=== PATIENT | male | born 1965 | race Caucasian/White ===

== ENCOUNTER → 2017-01-23 | Outpatient (CLI) | payer MEDICARE ==
[2017-01-23 09:38] LABS: HEMATOCRIT 43.8 % (37.9-51.0); HGB HCT DIFFERENCE 1.2; MEAN CORPUSCULAR HEMOGLOBIN 31.7 pg (27.0-33.4); MEAN CORPUSCULAR HGB CONC 34.3 g/dL (32.0-36.0); MEAN CORPUSCULAR VOLUME 92 fl (80-97); RED BLOOD COUNT 4.74 10^6/uL (4.35-5.55); RED CELL DISTRIBUTION WIDTH 14.5 % (11.5-14.0); WHITE BLOOD COUNT 8.4 10^3/uL (4.0-10.5)
[2017-01-23 09:59] LABS: ALANINE AMINOTRANSFERASE 35 U/L (21-72); ALBUMIN 4.1 g/dL (3.5-5.0); ALKALINE PHOSPHATASE 82 U/L (38-126); ANION GAP 14 (5-19); ASPARTATE AMINO TRANSFERASE 19 U/L (17-59); BILIRUBIN,DIRECT 0.3 mg/dL (0.0-0.4); BILIRUBIN,TOTAL 0.7 mg/dL (0.2-1.3); BLOOD UREA NITROGEN 15 mg/dL (7-20); CARBON DIOXIDE 24 mmol/L (22-30); CHLORIDE 105 mmol/L (98-107); CHOLESTEROL 174.51 mg/dL (0-200); Direct HDL 36 mg/dL (>40); GLUCOSE 97 mg/dL (75-110); POTASSIUM 4.6 mmol/L (3.6-5.0); TOTAL PROTEIN 6.8 g/dL (6.3-8.2); TRIGLYCERIDES 164 mg/dL (<150)
[2017-01-23 10:10] LABS: DIRECT LDL 81 mg/dL (<100)
[2017-01-23 11:07] LABS: VLDL CHOLESTEROL 32.8 mg/dL (10-31)
== END ==
LOC: LAB 09:18
DX: F25.0 Schizoaffective disorder, bipolar type (principal); Z79.899 Other long term (current) drug therapy
CPT/HCPCS: 36415; 80048; 80061; 80076; 82607; 82746; 83036; 85027

== ENCOUNTER 2017-04-03 15:26 | Emergency (ER) | payer MEDICARE ==
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
[2017-04-03 16:49] VITALS: BP 128/72
== END 2017-04-03 16:37 | disposition home or self-care (01) ==
LOC: ER 15:26
DX: J06.9 Acute upper respiratory infection, unspecified (principal); R06.02 Shortness of breath; F17.210 Nicotine dependence, cigarettes, uncomplicated
CPT/HCPCS: 99284

== ENCOUNTER 2017-04-04 15:38 | Emergency (ER) | payer MEDICARE ==
--- NOTE | 2017-04-04 15:56 | ER Document Report ---
ED Medical Screen (RME) - General Chief Complaint: Suicidal Ideation Stated Complaint: SUICIDAL IDEATION Time Seen by Provider: 04/04/17 15:53 Mode of Arrival: Ambulatory Information source: Patient TRAVEL OUTSIDE OF THE U.S. IN LAST 30 DAYS: No - HPI Patient complains to provider of: suicidal ideation Onset: Other - pt. has h/o depression/schizophrenia recently relocated to this area has been hearing voices and having thoughts of hurting himself. Denies HI - Related Data Allergies/Adverse Reactions: No Known Allergies Allergy (Unverified 04/03/17 15:32) Past Medical History Renal/ Medical History: Denies: Hx Peritoneal Dialysis Psychiatric Medical History: Reports: Hx Bipolar Disorder, Hx Schizophrenia - Immunizations Hx Diphtheria, Pertussis, Tetanus Vaccination: No Physical Exam - Vital signs Vitals: Temp Pulse Resp BP Pulse Ox 97.8 F 75 14 128/79 H 96 04/04/17 15:40 04/04/17 15:40 04/04/17 15:40 04/04/17 15:40 04/04/17 15:40 Course - Vital Signs Vital signs: Temp Pulse Resp BP Pulse Ox 97.8 F 75 14 128/79 H 96 04/04/17 15:40 04/04/17 15:40 04/04/17 15:40 04/04/17 15:40 04/04/17 15:40
[2017-04-04 16:16] LABS: ABSOLUTE BASOPHILS # (AUTO) 0.1 10^3/uL (0.0-0.2); ABSOLUTE EOSINOPHILS # (AUTO) 0.3 10^3/uL (0.0-0.6); ABSOLUTE LYMPHOCYTES (AUTO) 2.2 10^3/uL (0.5-4.7); ABSOLUTE MONOCYTES (AUTO) 0.6 10^3/uL (0.1-1.4); ABSOLUTE NEUT (AUTO) 6.1 10^3/uL (1.7-8.2); BASOPHILS % (AUTO) 0.8 % (0-2); HEMATOCRIT 45.5 % (37.9-51.0); HEMOGLOBIN 15.1 g/dL (13.5-17.0); HGB HCT DIFFERENCE -0.2; LYMPHOCYTES % (AUTO) 23.8 % (13-45); MEAN CORPUSCULAR HEMOGLOBIN 31.2 pg (27.0-33.4); MEAN CORPUSCULAR HGB CONC 33.1 g/dL (32.0-36.0); MEAN CORPUSCULAR VOLUME 94 fl (80-97); MONOCYTES % (AUTO) 6.4 % (3-13); RED BLOOD COUNT 4.83 10^6/uL (4.35-5.55); RED CELL DISTRIBUTION WIDTH 13.6 % (11.5-14.0); WHITE BLOOD COUNT 9.3 10^3/uL (4.0-10.5)
[2017-04-04 16:24] LABS: APPEARANCE,URINE SLIGHTLY-CLOUDY; BILIRUBIN,URINE NEGATIVE (NEGATIVE); GLUCOSE, URINE NEGATIVE (NEGATIVE); KETONES,URINE NEGATIVE (NEGATIVE); LEUKOCYTE ESTERASE,URINE NEGATIVE (NEGATIVE); NITRITE,URINE NEGATIVE (NEGATIVE); PROTEIN,URINE NEGATIVE (NEGATIVE); URINE SPECIFIC GRAVITY 1.021; UROBILINOGEN,URINE NEGATIVE mg/dL (<2.0)
[2017-04-04 16:27] LABS: ALANINE AMINOTRANSFERASE 29 U/L (21-72); ALBUMIN 3.9 g/dL (3.5-5.0); ALKALINE PHOSPHATASE 83 U/L (38-126); ANION GAP 11 (5-19); ASPARTATE AMINO TRANSFERASE 18 U/L (17-59); BILIRUBIN,DIRECT 0.3 mg/dL (0.0-0.4); BILIRUBIN,TOTAL 0.9 mg/dL (0.2-1.3); BLOOD UREA NITROGEN 21 mg/dL (7-20); CALCIUM 9.2 mg/dL (8.4-10.2); CARBON DIOXIDE 22 mmol/L (22-30); CHLORIDE 110 mmol/L (98-107); CREATININE RESULT 0.76 mg/dL (0.52-1.25); GLUCOSE 113 mg/dL (75-110); POTASSIUM 4.1 mmol/L (3.6-5.0); SODIUM 143.2 mmol/L (137-145); TOTAL PROTEIN 6.9 g/dL (6.3-8.2)
[2017-04-04 16:31] LABS: ALCOHOL < 10 mg/dL (NONE DETECTED)
[2017-04-04 16:42] LABS: URINE BARBITURATES SCREEN NEGATIVE; URINE METHADONE SCREEN NEGATIVE; URINE OPIATES LOW NEGATIVE; URINE PHENCYCLIDINE SCREEN NEGATIVE
--- NOTE | 2017-04-04 17:22 | ER Document Report ---
Addendum entered and electronically signed by NYA HUERTA 04/04/17 18:42 : ED Psych Disorder / Suicide - General Chief Complaint: Suicidal Ideation Stated Complaint: SUICIDAL IDEATION Time Seen by Provider: 04/04/17 15:53 Mode of Arrival: Ambulatory Notes: Patient is a 51 year old male who presents to the ED with complaints of suicidal ideation since 1987. Patient states he is a single man, has no friends and no family and is tired of living alone with no deputy jailer. Patient states the government took $300 of his SSI and he is having a difficult time making ends meet. Patient also states that he has no energy and feels weak, he also cannot sleep well at night. Patient [place] . Patient states that he has a broken nose that was diagnosed in [place] that is making it difficult for him to breath. Patient states he has not yet killed himself because he is scared to "do it". The past 2 days patient has been having nausea and diarrhea. Patient denies any chest pain. Patient also is hearing voices in his head that are telling him the more he goes to God the more the devil is going to come in. Patient states he thought of killing himself by jumping in front of a truck, states he has tried taking sleeping pills, or a gun although he no longer has one. Patient states he doesn't feel like living any loner without a deputy jailer. Patient is unsure of what kind of help he is looking for. Patient adds that he has had pain in his neck for the past 2 days but he thinks it is from the way he has been sleeping. No other concerns or complaints at this time. TRAVEL OUTSIDE OF THE [place] IN LAST 30 DAYS: No - Related Data Allergies/Adverse Reactions: No Known Allergies Allergy (Unverified 04/03/17 15:32) Physical Exam - Vital signs Vitals: Temp Pulse Resp BP Pulse Ox 97.8 F 75 14 128/79 H 96 04/04/17 15:40 04/04/17 15:40 04/04/17 15:40 04/04/17 15:40 04/04/17 15:40 - Notes Notes: GENERAL: Alert, interacts well. No acute distress. HEAD: Normocephalic, atraumatic. EYES: Pupils equal, round, and reactive to light. Extraocular movements intact. ENT: Oral mucosa moist, tongue midline. NECK: Full range of motion. Supple. Trachea midline. LUNGS: Clear to auscultation bilaterally, no wheezes, rales, or rhonchi. No respiratory distress. HEART: Regular rate and rhythm. No murmurs, gallops, or rubs. ABDOMEN: Soft, non-tender. Non-distended. Bowel sounds present in all 4 quadrants. EXTREMITIES: Moves all 4 extremities spontaneously. No edema, radial and dorsalis pedis pulses 2/4 bilaterally. No cyanosis. NEUROLOGICAL: Alert and oriented x3. Normal speech. Biceps and patellar DTRs 2+ bilaterally. PSYCH: Depressed affect, not tearful. Not responding to internal stimuli, Linear train of thought, hopelessness in train of thought and speech SKIN: Warm, dry, normal turgor. No rashes or lesions noted. Scribe Documentation - Scribe Written by Diannee:: lien Bravo, 04/04/2017, 1840 acting as scribe for DrChucky:: Horace Original Note: ED Psych Disorder / Suicide <FRAN GONZALEZ - Last Filed: 04/04/17 17:27> - General Mode of Arrival: Ambulatory TRAVEL OUTSIDE OF THE [place] IN LAST 30 DAYS: No <NYA HURETA - Last Filed: 04/04/17 18:19> <ALHAJI BURNHAM - Last Filed: 04/04/17 19:43> - General Chief Complaint: Suicidal Ideation Stated Complaint: SUICIDAL IDEATION Time Seen by Provider: 04/04/17 15:53 - HPI Notes: Pt reports hx of schizophrenia, bipolar and depression, suicidal ideation since this am, involving a knife. Patient states he is newly single and is diagnosised with bipolae and schizophrenia. Patinet states he is new to the area and all his friends and family live in [facility], [place]. Patient states he has had a hard time because it is hot and it is hard to breath after getting his nose broken about 3-4 weeks ago. Patient states he has also lost $300 in payments this month so has no money. Patient is not homeless. Patient states he hears voices "constantly." when asked if he hears them now he states no but when he leaves he will because "I just hear them when I am out trying to work and do things." Patient states he has "illustions" of faces that are happy or mad. Patient states he sees them in color and black and white. Patient stated he "can't live without a deputy jailer." When asked about his plan for suicide patient state "jump in front of a truck, pills which I have done before, and using a shotgun." Patient states he has suffered from suicidal ideation since 1987. Patient is alert and oriented to person ,place, time and circumstance. mood is anxious with congruent affect; ie psychomotor agitation (constant movement of legs, rubbing head ect. patient endorses suicidal ideation with no set plan- patient provides multiple ideas. Patient endorses auditory and visual hallucinations; patient is not demonstrating any behaviours congruent with responding to internal stimuli. Patient's reports of his manifestations of hallucinations is not congruent with known manifestations of hallucinations i.e. visual in both color and black and white ; auditory "continuous" or every time your trying to work." thought content is organized and linear. Thought content appears to be focused on an unknown secondary gain. Conversational speech is mumbled at times and difficult to understand. Intellectual abilities appear to be average range. attention and concentration are fair. insight judgement and impluse control are fair. bipolar per history provided by patient Impression / Plan: patient is considered psychiatrically clear for discharge. Patient does not meet IVC criteria per [place] GS 122C. patient endorses suicidal ideation with no set plan- patient provides multiple ideas. Patient endorses auditory and visual hallucinations; patient is not demonstrating any behaviours congruent with responding to internal stimuli. Patient's reports of his manifestations of hallucinations is not congruent with known manifestations of hallucinations i.e. visual in both color and black and white ; auditory "continuous" or every time trying to work." Thought content is organized and linear. Thought content appears to be focused on an unknown secondary gain. Patient is recommended to follow up with outpatient mental health provider, [facility]. Dr. Candelario was consulted on the care and management of this patient; attending physician is in agreement with recommendations and disposition. ( FRAN GONZALEZ) - Related Data Allergies/Adverse Reactions: No Known Allergies Allergy (Unverified 04/03/17 15:32) Past Medical History - General Information source: Patient - Social History Smoking Status: Current Every Day Smoker Chew tobacco use (# tins/day): No Frequency of alcohol use: None Drug Abuse: None Family History: Reviewed & Not Pertinent Patient has suicidal ideation: No Patient has homicidal ideation: No Renal/ Medical History: Denies: Hx Peritoneal Dialysis Psychiatric Medical History: Reports: Hx Bipolar Disorder, Hx Schizophrenia Surgical Hx: Negative - Immunizations Hx Diphtheria, Pertussis, Tetanus Vaccination: No <NYA HUERTA - Last Filed: 04/04/17 18:19> Course - Laboratory Result Diagrams: 04/04/17 16:00 04/04/17 16:00 <FRAN GONZALEZ - Last Filed: 04/04/17 17:27> - Laboratory Result Diagrams: 04/04/17 16:00 04/04/17 16:00 <NYA HUERTA - Last Filed: 04/04/17 18:19> - Laboratory Result Diagrams: 04/04/17 16:00 04/04/17 16:00 <ALHAJI BURNHAM - Last Filed: 04/04/17 19:43> - Re-evaluation Re-evalutation: 04/04/17 19:41 CBC unremarkable, CMP grossly unremarkable slightly elevated BUN at 21 otherwise unremarkable, TSH normal, urinalysis unremarkable, urine drug screen is negative and alcohol is undetectable. I did discuss this patient with Fran Gonzalez mental health clinician as well, neither of us feel the patient fits IVC criteria in the [facility]. Patient has a place to live, he was given recommendations regarding following up with [facility] who is his outpatient mental health provider, recommend to continue taking his medications but to discuss possibly changing his trazodone with his primary care provider. I did discuss his habits with him and possible changes in his sleep hygiene that could lead to better sleep and possibly decreased depression. (ALHAJI BURNHAM) - Vital Signs Vital signs: Temp Pulse Resp BP Pulse Ox 97.7 F 56 L 20 130/70 H 97 04/04/17 18:16 04/04/17 18:16 04/04/17 18:16 04/04/17 18:16 04/04/17 18:16 - Laboratory Laboratory results interpreted by me: 04/04/17 04/04/17 16:00 16:00 Chloride 110 H BUN 21 H Glucose 113 H Urine Ascorbic Acid 40 H Discharge <FRAN GONZALEZ - Last Filed: 04/04/17 17:27> <NYA HUERTA - Last Filed: 04/04/17 18:19> <ALHAJI BURNHAM - Last Filed: 04/04/17 19:43> - Discharge Clinical Impression: Bipolar disorder, unspecified Qualifiers: Active/Remission status: currently active Current bipolar episode type: depressed Current episode severity: unspecified Qualified Code(s): F31.30 - Bipolar disorder, current episode depressed, mild or moderate severity, unspecified Insomnia Qualifiers: Insomnia type: unspecified Qualified Code(s): G47.00 - Insomnia, unspecified Clinical Impression: (Ruled Out): Bipolar I disorder Condition: Stable Disposition: HOME, SELF-CARE Additional Instructions: DEPRESSION: Your evaluation reveals that you have mental depression. While symptoms may be vague, they often include disturbance of sleep, fatigue, loss of appetite , and general loss of interest in life. While depression may be a side effect of drugs, or a reaction to a major change in your life, many cases have no known cause. If depression is acute, and related to a major loss in your life, you can expect it to clear completely with time. If you have been depressed a long time , are prone to repeated bouts of depression or low mood, or have been thinking of suicide, get help. Depression can be treated with anti-depressant medication and counselling. Long-term depression will often take a few weeks to clear, even with appropriate medication. Follow-up care is important. SUICIDAL IDEATION: Suicidal ideation is a common medical term for thoughts about suicide, which may be as detailed as a formulated plan, without the suicidal act itself. Although most people who undergo suicidal ideation do not commit suicide, some go on to make suicide attempts. The range of suicidal ideation varies greatly from fleeting to detailed planning, role playing, and unsuccessful attempts. While thoughts about suicide are common, most people do not carry out serious actions to commit suicide. Based upon your evaluation and discussion with you, we do not believe you are currently at risk to act upon your thoughts of suicide. You have agreed to return to the Emergency Department, at any time , if you feel inclined to act upon your suicidal thoughts. FOLLOW-UP CARE: Please follow up with your outpatient mental health provider, [facility], on Friday. If you experience worsening or a significant change in your symptoms, notify the physician immediately or return to the Emergency Department at any time for re-evaluation. For your insomnia it is important that you practice good sleep hygiene. Please set an alarm and make sure that you are waking up at the same time every morning and make sure you are going to bed at the same time every night. You need to provide at least 8 hours for sleep every night. You should try and have it be the same 8 hours every night. Do not take naps during the day as well make it difficult to fall asleep at night. Please consider using earplugs or a white noise machine to drown out the noise of the bar that you live near. Please also use things like blackout curtains to block out the light. Please discuss with your mental health provider whether trazodone is the best medication for your insomnia, sometimes it can cause nightmares that make it harder for you to sleep. Please return to the emergency department for any new or concerning symptoms. Referrals: [facility] [Outside] - 04/07/17 8:00 am Scribe Attestation: 04/04/17 19:43 I personally performed the services described in the documentation, reviewed and edited the documentation which was dictated to the scribe in my presence, and it accurately records my words and actions. (ALHAJI BURNHAM) Scribe Documentation - Scribe Written by Lien:: lien Bravo, 04/04/2017, 1840 acting as scribe for :: Horace <NYA HUERTA - Last Filed: 04/04/17 18:19>
[2017-04-04] MEDS ORDERED: ACETAMINOPHEN 325 MG TABLET PO ONE (18:00)
[2017-04-04 18:17] VITALS: BP 130/70
== END 2017-04-04 18:17 | disposition home or self-care (01) ==
LOC: ER 15:38
DX: G47.00 Insomnia, unspecified (principal); F31.30 Bipolar disorder, current episode depressed, mild or moderate severity, unspecified; R45.851 Suicidal ideations; F20.9 Schizophrenia, unspecified; M54.2 Cervicalgia; F17.200 Nicotine dependence, unspecified, uncomplicated
CPT/HCPCS: 99284; 36415; 80307 ×2; 84443; 85025; 80053; 81001; A9270